=== PATIENT | male | born 1970 | race Caucasian/White ===

== ENCOUNTER 2016-06-23 15:40 | Emergency (ER) | payer OTHER ==
[2016-06-23] MEDS ORDERED: ONDANSETRON ODT 4 MG TAB ONE (16:12)
[2016-06-23] MEDS ORDERED: DILAUDID 1 MG/ML AMP ONE (16:12)
== END 2016-06-23 17:45 | disposition home or self-care (01) ==
LOC: FASTR 15:40
DX: M51.16 Intervertebral disc disorders with radiculopathy, lumbar region (principal); M51.26 Other intervertebral disc displacement, lumbar region
CPT/HCPCS: 96372